=== PATIENT | male | born 1995 | race Caucasian/White ===

== ENCOUNTER 2020-08-23 10:23 | Inpatient (IN) | payer OTHER, SELFPAY ==
[2020-08-23] VITALS (7 sets, daily range): BP systolic 116–124; BP diastolic 44–75; PULSE 64–66; RESP 16–18; TEMP 36.8–37; O2SAT 97–99; BMI 27.2
--- NOTE | 2020-08-23 10:41 | ED_ITS ---
HPI - Psych General Chief Complaint: Psychiatric Symptoms Stated Complaint: CRISIS,SI W/PLAN Time Seen by Provider: 08/23/20 10:41 Source: EMS Mode of arrival: EMS Limitations: other (agitated, uncooperative) History of Present Illness MD complaint: suicidal ideation Onset (ago): day(s) (girlfriend called 911 today) Duration: constant Relieving factors: none Exacerbating factors: none Context: significant life stressor Associated psychiatric symptoms: depression and suicidal ideation Treatments prior to arrival: none If self harm: admits thoughts of self harm and has plan (held a knife up per girlfriend) Related Data Allergies Allergy/AdvReac Type Severity Reaction Status Date / Time No Known Allergies Allergy Verified 08/23/20 11:36 Review of Systems Review of Systems: ROS unable to be obtained due to patient being uncooperative [facility] Past Medical History Attestation statement: The following information was validated with the patient. Medical History No active medical problems Social History Social History Alcohol intake: former Smoking Status: Current every day smoker Smoked in Last 30 Days: Yes Use of substances other than those prescribed or required for medical reasons: Yes Substance Use Type: Marijuana Substance Use Frequency: Occasionally Last Used Substance: Hours (ago) Any prior treatment program specific to substance use: No Advance Directives: No Advance Directives Information Provided: No Physical Exam Vital Signs: Vital Signs: Vital Signs Temp Pulse Resp BP Pulse Ox 08/23/20 11:00 98.6 F 64 16 124/75 99 Body Mass Index 27.2 Appearance: Alert. uncooperative, agitated, I want to leave. I have a right to kill myself. Eyes: Pupils equal, round and reactive to light. ENT: Pharynx normal. Neck: Normal inspection. Neck supple. CVS: unable to examine Respiratory: No respiratory distress. Abdomen: unable to examine Skin: Skin warm and dry. Normal skin color. Extremities: full ROM Neuro: Oriented X 3. No motor deficit. steady gait, will not participate in exam Course Course Course Narrative: section 12 bed search - he became acutely agitated and aggressive once he was told, ran to the door, postured, became erratic and was not able to be de-escalated, given patient / staff safety concerns he was given IM haldol and ativan which he did take willingly signed out to Dr. Sebastian pending placement MDM - Psych MDM Narrative Medical decision making narrative: 24 yo male BIBA for making SI statement and holding knife, on arrival to ED uncooperative and agitated, still making SI statemtents, attempted to get out of the pod on arrival, security at bedside, section 12 signed, will need labs, BHN consult may need chemical restraint if he continues to posture and attempt to flee Restraints Face to Face Assessment: Face to Face Assessment: Current Situation: After assessment of the patient, a review of the pertinent medical record and a discussion with nursing staff, I feel the patient requires a restrain intervention. Reaction To: [] Medical Condition: [] Behavioral State: [] Continued Need: [] Discharge Plan Discharge Clinical Impression: Depression Qualifiers: Depression Type: unspecified Qualified Code(s): F32.9 - Major depressive disorder, single episode, unspecified
--- NOTE | 2020-08-23 11:49 | PC.NURSE ---
pt cooperative at this time, drinking a tea, faxed and called to [facility], NICOTINE GUM GIVEN
--- NOTE | 2020-08-23 11:50 | PC.NURSE ---
DECLINED TO GIVE URINE SAMPLE, STATES HE SMOKES POT DENIES OTHER DRUG USE
--- NOTE | 2020-08-23 13:20 | PC.NURSE ---
pt refused bloodwork, wants to speak w bhn but doesn't want anything else
--- NOTE | 2020-08-23 13:52 | PC.NURSE ---
family member deon [phone]
--- NOTE | 2020-08-23 13:56 | PC.NURSE ---
pt's hallie mother is in the [facility] and is here because she is very concerned about the pt, she states that she has texts from him that express alonso CR is here and i informed them of this
[2020-08-23] MEDS: LORazepam 2 MG/ML VIAL IM (15:42)
[2020-08-23] MEDS: Haloperidol Lactate 5 MG/ML VIAL IM (15:42)
--- NOTE | 2020-08-23 15:53 | PC.NURSE ---
Pt informed by Johan that he will be a section 12 bed search. Pt became agitated, banging on doors to main ED, attempting to barricade in room, yelling at staff, unable to settle or calm on own. Provider aware. Medication restraint at 1542. Currently in room, laying in bed, crying on and off.
--- NOTE | 2020-08-23 17:10 | PC.NURSE ---
pt asleep, no signs of distress, respirations even and nonlabored
--- NOTE | 2020-08-23 19:11 | PC.NURSE ---
Report received. PT is sleeping in bed. Breathing is even and unlabored. Section 12 inpatient bed search in progress.
--- NOTE | 2020-08-24 06:19 | PC.NURSE ---
PT woke up and moved out of bed for the first time during shift. PT asked in a calm and polite manner for a toothbrush and toothpaste.
[2020-08-24 06:20] VITALS: BP 118/60; PULSE 72; RESP 17; TEMP 36.7; O2SAT 97
--- NOTE | 2020-08-24 06:26 | PC.NURSE ---
PT refused lab draws and EKG at this time.
--- NOTE | 2020-08-24 07:02 | PC.NURSE ---
Report recieved. Pt resting, breakfast at bedside. Pt asking when he can speak with provider. PT is inpatient bedsearch.
[2020-08-24 09:12] LABS: MANUAL DIFF FLAG NO
[2020-08-24 09:15] LABS: Basophils Percent Auto 0.4 % (0-2); Eosinophils Percent Auto 0.1 % (0-4); Hematocrit 47.2 % (42-52); Hemoglobin 15.9 g/dl (14.0-18.0); Imm Gran Abs Auto 0.02 X10*3/uL (0.00-0.03); Imm Gran Pct Auto 0.3 % (0.0-0.4); Lymphocytes Absolute Auto 1.2 X10*3/uL (1.2-4.9); Lymphocytes Percent Auto 15.7 % (20-40); Mean Corpuscular HGB Conc 33.7 g/dl (31.0-36.0); Mean Corpuscular Hemoglobin 28.9 pg (27.0-33.0); Mean Corpuscular Volume 85.7 fL (80-98); Mean Platelet Volume 10.2 fL (9.4-12.4); Monocytes Absolute Auto 0.5 X10*3/uL (0.1-1.2); Monocytes Percent Auto 7.1 % (2-11); Neutrophils Absolute Auto 5.8 X10*3/uL (2.0-8.3); Neutrophils Percent Auto 76.4 % (45-73); Platelet Count 252 X10*3/uL (160-400); Red Blood Count 5.51 X10*6/uL (4.60-5.80); Red Cell Distribution Width 12.5 % (11.0-16.0); White Blood Count 7.6 X10*3/uL (4.8-10.8)
[2020-08-24 09:30] VITALS: BP 109/71; PULSE 80; RESP 18; TEMP 37.1; O2SAT 98
[2020-08-24 09:35] LABS: Alanine Aminotransferase 24 U/L (0-40); Albumin Level 4.5 g/dL (3.5-5.0); Alkaline Phosphatase 63 U/L (39-117); Anion Gap 13 (12-20); Aspartate Amino Transferase 21 U/L (5-37); Bilirubin Total 1.2 mg/dL (0.0-1.0); Blood Urea Nitrogen 15 mg/dL (9-16); Carbon Dioxide 27 mmol/L (22-29); Chloride 103 mmol/L (96-108); Creatinine Clr Calc Pharmacy 125.6; Estimated Glomerular Filt Rate > 60; Glucose Random 115 mg/dL (60-115); Potassium 4.2 mmol/l (3.3-5.1); Sodium 139 mmol/L (135-145); Total Protein 7.3 g/dL (6.5-8.0)
[2020-08-24 10:01] LABS: SARS COV2 PCR INHOUSE NEGATIVE (Negative)
[2020-08-24 10:38] LABS: Amphetamine Screen Urine Not Detected (Not Detect); Barbiturates, Urine Not Detected (Not Detect); Benzodiazepines Screen Urine Not Detected (Not Detect); Cannabinoid Screen Urine POSITIVE (Not Detect); Cocaine Screen Urine Not Detected (Not Detect); Opiate Screen Urine Not Detected (Not Detect); Phencyclidine Screen Urine Not Detected (Not Detect)
--- NOTE | 2020-08-24 14:38 | PC.ADMIT ---
Pt admitted to unit at 1348. Pt angry he is here. Pt is a 24 year old single, [place] speaking, male who was brought to the ED by ambulance after police were sent to do a well-being check and found him with a knife tearful and stated I have the right to kill myself . His child's mother had been concerned because patient was recently aking suicidal statements and was struggling.. Patient identified stressors such as the strained relationship with his son's chaneller, being homeless, in a low paying job and unable to contribute financially and having no providers or supports. In the ED he was reported to be resistant to staying for evaluation, was agitated though did accept and IM midication of Haldol and Ativan last night and this morning was cooperative. Pt flat, angry. Pt wants to leave tonight because he has visitation with his son this weekend. Pt denies SI/HI. Pt also denies AH/VH. Pt refusing to go to a room with another pt.
[2020-08-24] MEDS: Nicotine Polacrilex 2 MG GUM 4 MG BUCCAL (17:32)
[2020-08-24 18:00] VITALS: BP 128/82; PULSE 66; TEMP 36.7
[2020-08-25 06:00] VITALS: BP 120/57; PULSE 64; TEMP 37.1
[2020-08-25] MEDS: Nicotine Polacrilex 2 MG GUM 4 MG BUCCAL ×2 (08:53→12:14)
--- NOTE | 2020-08-25 11:19 | HO.PSYADMNOT ---
HPI Chief Complaint: Depression Sources of Information: patient interviewed and crisis/core team assessment reviewed Additional Sources of Information: sw reviewed with mother HPI Narrative: the patient is a 25-year-old male without prior inpatient history. The patient was referred to the emergency room and crisis team after he was brought to the emergency room by ambulance issued by the [place] [employer] due to reported suicidal ideation. The patient's ex partner a woman with whom he shares a 1-year-old son called police concerned that he had been upset tearful and reportedly had a knife on him. He was given Haldol in the emergency room. The patient had stated he normally carries a small knife as he is frequently living in his car. The patient did state that he had been upset because his son with whom he is quite connected had called another man who is with his ex dad. This did trigger a sense of despair as the patient has had at difficult time because of his homelessness living out of his car limiting his ability to have contact with his son. The patient in the emergency room outside of 1 brief period of being upset was apparently a cooperative In generally was calm the patient did relate ongoing anxiety and depressive feelings. He stated times he felt demoralized difficult to maintain motivation and energy although he did work full-time he denied any history of suicide attempts and denied that he he had been having thoughts to kill himself. He did state he had been upset that day hearing his son call another man father he does have a record from a prior incarceration he states this has made it quite hard to get a good paying job in going on with his life. He does state he has been quite motivated to try and improve his life [facility] Medical History (Updated 09/02/20 @ 00:01 by Jose Day) Adjustment disorder with mixed anxiety and depressed mood Generalized anxiety disorder No active medical problems Family History: father history of mental illness Social History: the patient is homeless living in his car he is employed full-time at a [employer]. Is a 1-year-old son who he visits with multiple times a week. He has seen a therapist in the past. There is a past history of substance use but has not used he states in extended period of time he has been demoralized over not being able to get ahead in his life get a better job to be able to sort port his son were provide appropriate housing Substance History: intermittant marijuana use Trauma History: unclear Diagnostics Vital Signs (24Hr): Body Mass Index 27.2 Labs Results: 08/24/20 09:08 08/24/20 09:08 Meds/Allergies Allergies Allergies Allergy/AdvReac Type Severity Reaction Status Date / Time No Known Allergies Allergy Verified 08/23/20 11:36 Mental Status Exam Mental Status Exam Narrative: the patient was seen on the unit he was well groomed come and cooperative. He was advocating to be discharged stating he was transiently upset after his son called another man dad while visiting his son at his ex girlfriend's house. He is quite motivated to improve approve himself and is willing to accept help from his mother who can provide housing and other support. Although patient stated he was transiently said overwhelmed angry after being triggered by what his son and said he denies any active thoughts of self harm or harm to his ex or anyone else. Patient has common no prior psych hospitalization he is accepting of outpatient referrals he does report chronic anxiety and worry Patient Appearance: Well Grooomed Patient Orientation: Person, Place, Time and Situation Level of Consciousness: Awake Patient Behavior: Appropriate Assessment & Plan Patient educated on: diagnosis, medication risk/benefits and therapeutic strategies Informed Consent: understands Reason for continued inpatient stay Substantial Risk for: stable for discharge
--- NOTE | 2020-08-25 16:50 | PM.PSYDC ---
DS: Providers Provider Date of admission: 08/24/20 13:07 Primary care physician: None Physician DS: Diagnosis Discharge Diagnosis (1) Generalized anxiety disorder: Status: Acute Problem details: chronic worry and anxiety (2) Adjustment disorder with mixed anxiety and depressed mood: Status: Acute Problem details: acute anxiety anger depressed mood in context of seeing his son interacting with another man (3) Dysthymia: Status: Acute Problem details: chronic sense of sadness emptiness ability to enjoy things denies self-harming thoughts Discharge Plan Discharge Patient Disposition: Home, Self-Care Referrals: VERONIQUE REMY [Other] - 08/30/20 12:00 pm (TELEHEALTH, THERAPIST WILL CALL YOU) Physician,None [Primary Care Provider] - Discharge Orders: Discharge Order (Routine); Ordered 08/25/20 Ordered By: Chandrakant Moyer Diet: advance to usual diet Activity on Discharge: As tolerated Patient Instructions: Mirtazapine (By mouth), Depression (DC), Help Prevent Suicide (DC), Anxiety (GEN), Suicide Prevention (DC) Stand Alone Forms: Community Support Discharge Date/Time: 08/25/20 13:30 Visit Report Forms: Patient Portal Discharge page Care Plan Goals: stable mood anxiety management improved tools to manage stressful economic and family situation no self harm participate in outpatient treatment Health Concerns: anxiety and depressive symptoms reported self-harming thoughts Plan of Treatment: therapy please call the crisis team or go to the emergency room if feeling unsafe crisis team [phone] consider non addictive medication to manage chronic anxiety Mental Status Exam Mental Status Exam Narrative: the patient was come future oriented. He reported chronic anxiety regarding his work situation situation with his son he wanted to be a penitentiary factor and raising and providing for his son. This seemed to be great motivating factor for him. His mood was mildly sad with not angry or impulsive he was future oriented was hopeful that living his with his mother would be helpful providing found patient to rebuild his life. He was able taken information regarding different agencies that might be able to be supportive and helpful regarding both housing and job training. No psychosis no thoughts of harm to himself or others he did not wish medication at this time he did take information regarding this DS: Summary Hospital Course Hospital Course: the patient was seen and discharged on 08/25/2020. This was coordinated with his director of social work claire solano who spoke with the patient's mother. Patient was come cooperative given extensive information regarding anxiety depressive symptoms he denied any active substance use. The patient was forthcoming regarding have demoralizing it could be living in his car not able to support his son properly not having an independent place to live. His mom did offer him secure housing and he was agreeable to referrals for outpatient counseling I did also discuss with him the possibility of a medication such as mirtazapine to help with insomnia anxiety and depressive symptoms. Patient was future oriented come at the time of discharge adamantly denied any suicidal plan or intent and his mother felt quite comfortable with the discharge plan. Patient adamantly denied any thoughts of harm to his son or his ex strongly urged the patient to follow up in counseling and consider medication that would not be addictive that might help with managing his mood and chronic worry Status at Discharge Cognitive/behavioral status at discharge: patient was come future oriented somewhat helpful regarding a new living situation Functional status at discharge: independent ambulation Overall status at discharge: patient is progressing back to baseline Time Spent with Patient Time attestation: Total time spent providing and/or coordinating discharge services:
== END 2020-08-25 13:30 | disposition home or self-care (01) | DRG 755 ==
LOC: HO.ED 08-24 13:05 → HO.PM5 08-24 13:34
PROVIDERS: Physician Assistant; Admitting Provider Psychiatry & Neurology Psychiatry; Emergency Provider Emergency Medicine; Visit Provider Psychiatry & Neurology Psychiatry
DX: F43.23 Adjustment disorder with mixed anxiety and depressed mood (principal); F17.210 Nicotine dependence, cigarettes, uncomplicated; Z20.828 Contact with and (suspected) exposure to other viral communicable diseases; Z71.6 Tobacco abuse counseling
CPT/HCPCS: 36415; 80053; 80307; 85025; 90792; 96372; 99239; 99285; J2060; U0003

== ENCOUNTER 2025-08-09 16:08 | Outpatient (AMB) | payer BC, SELFPAY ==
--- OUTSIDE RECORDS SUMMARY | 2011-12-19 06:22 | XMS_ITS | Continuity of Care Document ---
Author Organization [facility] Address [address] [place] [id number] Phone Care Team Providers Care Christmas Tree Grader Name Role Phone Florence Navarro MD Unavailable Unavailable Allergies, Adverse Reactions, Alerts Substance Reaction Status Criticality No Known allergies Procedures Procedure Date EYE EXAM, NEW PATIENT REMOVE FOREIGN BODY FROM EYE Advance Directives Directive Yes / No Effective Date File Name No Information Encounters Encounter Description Practice Location Reason(s) For Visit Diagnoses Date Provider [facility] , [address] [place], [place] [address], [facility], tel:[phone] [address] [place] [address] Corneal foreign bodyCorneal foreign bodyConjunctiv itis, unspecifiedCon junctivitis, unspecified 2011 Ramon Henriquez. [address] [facility], [address], [facility], . tel:[phone] Family History Family Member Type Diagnosis Age At Onset No Information Payers Payer name Insurance type Covered democrat ID Authoriza tion(s) No Information Social History Type Description Quantity Date Captured Comments Sex Male Smoking Status No Information Chief Complaint And Reason For Visit No Information History Of Present Illness Encounter Date Complaint History Of Prese nt Illness No Information Instructions Date Instruction Additional Infor mation - Return in PRN Related to Conju nctivitis, unspecified FB-Corneal OD. Conju nctivitis, unspecified - metal FB, removed with forceps. pt advised to stop pred OU and use maxitrol ointment qhs OD until FBS resolved. also gave sample of lastacaft to use qday ou for allergic conjunctivitis.Pt advised to call if not improving Related to Conjunctivitis, unspecified Assessments Type Assessment Date No Information
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
[2025-08-09 16:22] VITALS: BP 130/74; PULSE 91; RESP 16; TEMP 36.8; O2SAT 95
--- OUTSIDE RECORDS SUMMARY | 2025-08-09 20:57 | XMS_ITS ---
Author Name [facility] Organization Unknown Care Team Organization Name Specialty Phone Email Start Date End Da te [facility] Shirley Munguia [facility] 02/24/2023 06/07/2024 [facility] Jerilyn Perez [facility] 08/27/2022
== END 2025-08-09 16:57 | disposition home or self-care (01) ==
LOC: HO.HMCFMS 16:10
PROVIDERS: Visit Provider Student in an Organized Health Care Education/Training Program
DX: M25.511 Pain in right shoulder (principal); L21.9 Seborrheic dermatitis, unspecified; Z87.828 Personal history of other (healed) physical injury and trauma

== ENCOUNTER 2025-08-10 14:44 | Outpatient (REF) | payer BC, SELFPAY ==
--- OUTSIDE RECORDS SUMMARY | 2011-12-19 06:22 | XMS_ITS | Continuity of Care Document ---
Author Organization [facility] Address [address] [place] [id number] Phone Care Team Providers Care Database Analyst Name Role Phone Florence Navarro MD Unavailable Unavailable Allergies, Adverse Reactions, Alerts Substance Reaction Status Criticality No Known allergies Procedures Procedure Date EYE EXAM, NEW PATIENT REMOVE FOREIGN BODY FROM EYE Advance Directives Directive Yes / No Effective Date File Name No Information Encounters Encounter Description Practice Location Reason(s) For Visit Diagnoses Date Provider [facility] , [address] [place], [place] [address], [facility], tel:[phone] [address] [place] [address] Corneal foreign bodyCorneal foreign bodyConjunctiv itis, unspecifiedCon junctivitis, unspecified 2011 Ramon Henriquez. [address] [facility], [address], [facility], . tel:[phone] Family History Family Member Type Diagnosis Age At Onset No Information Payers Payer name Insurance type Covered republican ID Authoriza tion(s) No Information Social History [...]
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
== END 2025-08-10 14:45 | disposition home or self-care (01) ==
LOC: HO.NEURO 14:44
PROVIDERS: PCP Student in an Organized Health Care Education/Training Program; Visit Provider Physical Medicine & Rehabilitation
DX: Z00.00 Encounter for general adult medical examination without abnormal findings (principal); G56.21 Lesion of ulnar nerve, right upper limb
CPT/HCPCS: 95886; 95909

== ENCOUNTER → 2025-08-10 14:52 | Outpatient (BNV) | payer BC, SELFPAY | PROVIDERS: PCP Student in an Organized Health Care Education/Training Program; Visit Provider Physical Medicine & Rehabilitation | DX: M25.511 Pain in right shoulder (principal); M79.641 Pain in right hand; R20.2 Paresthesia of skin | CPT/HCPCS: 95886; 95909 ==

== ENCOUNTER 2025-08-25 11:26 | Outpatient (REF) | payer BC, SELFPAY ==
[2025-08-25 17:29] LABS: MANUAL DIFF FLAG NO
[2025-08-25 17:44] LABS: Hematocrit 48.0 % (42.0-52.0); Hemoglobin 15.7 g/dl (14.0-18.0); Imm Gran Abs Auto 0.01 X10*3/uL (0.00-0.03); Imm Gran Pct Auto 0.1 % (0.0-0.4); Lymphocytes Absolute Auto 2.1 X10*3/uL (1.2-4.9); Mean Corpuscular HGB Conc 32.7 g/dl (31.0-36.0); Mean Corpuscular Hemoglobin 27.4 pg (27.0-33.0); Mean Corpuscular Volume 83.9 fL (80.0-98.0); NRBC Abs Auto 0.000 X10*3/uL (0.0-0.012); NRBC Pct Auto 0.0 /100WBC (0.0-0.2); Platelet Count 245 X10*3/uL (160-400); Red Blood Count 5.72 X10*6/uL (4.60-5.80); White Blood Count 7.3 X10*3/uL (4.8-10.8)
[2025-08-25 18:05] LABS: Alanine Aminotransferase 57 U/L (0-40); Albumin Level 4.6 g/dL (3.5-5.0); Alkaline Phosphatase 78 U/L (39-117); Anion Gap 15 (12-20); Aspartate Amino Transferase 35 U/L (5-37); Blood Urea Nitrogen 15 mg/dL (9-16); Calcium 9.3 mg/dL (8.4-10.2); Carbon Dioxide 24 mmol/L (22-29); Chloride 106 mmol/L (96-108); Cholesterol 219 mg/dL (<200); Estimated Glomerular Filt Rate > 60; HDL Cholesterol 32 mg/dL (>40); Magnesium 2.1 mg/dL (1.6-2.6); Potassium 3.9 mmol/L (3.3-5.1); Sodium 141 mmol/L (135-145); Total Protein 7.6 g/dL (6.5-8.0); Triglycerides 110 mg/dL (<150)
[2025-08-25 18:28] LABS: Folate 11.5 ng/mL (> or = 4.0); Vitamin B12 528 pg/mL (200-900)
[2025-08-26 07:21] LABS: Syphilis Screen Nonreactive (Nonreactive)
[2025-08-26 07:39] LABS: HBS Num1 2.78 mIU/mL (0-7.99); HBsAGNum1 0.39 S/CO (0.00-0.99); HIV Num 1 0.06 S/CO (0.00-0.99); Hepatitis B Surface Antigen Negative (Negative); ~HepC Num1 0.13 S/CO (0.00-0.79); ~Hepatitis B Surface Antibody NONREACTIVE (Nonreactive); ~Hepatitis C Antibody Nonreactive (Nonreactive)
[2025-08-31 04:53] LABS: VITAMIN D (1,25 OH) D3 45 pg/mL; Vit D (1,25-Dihydroxy) Total 45 pg/mL (18-72); Vitamin D (1,25 OH) D2 <8 pg/mL
[2025-09-01 10:03] LABS: Other Ref Test - Misc SEE SCANNED RESULTS
== END 2025-08-25 11:27 | disposition home or self-care (01) ==
LOC: HO.HKASLDS 11:26
PROVIDERS: PCP Student in an Organized Health Care Education/Training Program; Visit Provider Student in an Organized Health Care Education/Training Program
DX: Z11.4 Encounter for screening for human immunodeficiency virus [HIV] (principal); Z13.1 Encounter for screening for diabetes mellitus; Z13.21 Encounter for screening for nutritional disorder; Z13.6 Encounter for screening for cardiovascular disorders; Z11.3 Encounter for screening for infections with a predominantly sexual mode of transmission; Z13.29 Encounter for screening for other suspected endocrine disorder; Z01.84 Encounter for antibody response examination
CPT/HCPCS: 80053; 80061; 82607; 82652; 82746; 83036; 83735; 84443; 85025; 86631; 86632; 86706; 86780; 86803; 87340; 87389

== ENCOUNTER 2025-09-05 13:53 | Outpatient (REF) | payer BC, SELFPAY ==
[2025-09-05 18:12] LABS: Appearance Urine Clear; Glucose Urine UA Negative (Negative); PH 7.0 (5.0-9.0); Specific Gravity - Urine 1.025 (1.005-1.025)
[2025-09-06 02:47] LABS: CT PCR Urine NOT DETECTED (Not Detect.); NG PCR Urine NOT DETECTED (Not Detect.)
== END 2025-09-05 13:54 | disposition home or self-care (01) ==
LOC: HO.HKASLDS 13:53
PROVIDERS: PCP Student in an Organized Health Care Education/Training Program; Visit Provider Student in an Organized Health Care Education/Training Program
DX: Z13.89 Encounter for screening for other disorder (principal); Z20.2 Contact with and (suspected) exposure to infections with a predominantly sexual mode of transmission
CPT/HCPCS: 81003; 87491; 87591